=== PATIENT | female | born 1965 ===

== ENCOUNTER 2023-02-13 11:36 | Observation (INO) ==
[2023-02-13] MEDS ORDERED: fentaNYL citrate PF 100 MCG/2 ML VIAL IV STA ×2 (11:52→13:27)
--- NOTE | 2023-02-13 11:55 | Emergency Department Note ---
Impression & Plan Bimalleolar fracture of right ankle ED Provider Note HISTORY OF PRESENT ILLNESS: Patient is a 57-year-old female presenting with right ankle pain and right hip pain after a fall. Patient reports she slipped on a snow bank in the weather and twisted her right ankle and fell on her right hip. Denies striking her head or loss of consciousness. She reports she laid on the ground for 20 minutes before someone was able to call for help. She was unable to get up on her own secondary to immense pain. Denies any chest pain or shortness of breath prior to the fall. Reports she just lost her footing on the ice. She is not on any anticoagulation ROS: as above PHYSICAL EXAM: Constitutional: Patient appears in no acute distress. HENT: Head: Normocephalic and atraumatic. Eyes: EOMI, PERRL Mouth/Throat: Mucous membranes moist. Neck: Trachea midline. Neck supple. Cardiovascular: RRR, No murmurs, rubs or gallops. Intact distal pulses. Pulmonary/Chest: No respiratory distress. Breath sounds clear and equal bilaterally. No wheezes or rales. No chest wall tenderness to palpation. Abdominal: Abdomen soft, no tenderness, rebound or guarding. Musculoskeletal: - RLE: No open wounds. Patient has deformity to the ankle. She has ecchymosis on the medial malleolus. Intact DP and PT pulses. Patient is able to wiggle toes. Sensation tact light touch about the nerve distributions of the foot. She is able to flex and extend at the knee without significant pain. No tenderness to palpation of the hip Skin: Warm and dry. No rash, erythema, pallor or cyanosis Psychiatric: Appropriate mood and affect for situation. Neurological: Alert and keenly responsive. CN II-XII grossly intact, moving all extremities equally and fully. MDM: - Vitals signs stable. - History obtained via patient. Patient presents with right ankle pain. Patient slipped on a snow bank in the weather and twisted her right ankle and fell on her right hip. Denies striking her head or loss of consciousness. She is not on any anticoagulation. Reports she was unable to get up off the ground on her own and laid down for 20 minutes until someone could help her up. - Chronic conditions affecting care: None - Differential diagnoses include, but are not limited to: Ankle fracture; ankle dislocation; ankle sprain; hip fracture - Order placed for continuous cardiac monitoring. At this time, monitor showed rate of 77 bpm with normal sinus rhythm, per my interpretation. - External medical records reviewed. EMS run sheet reviewed. No medications given pre-hospital. - EKG interpreted by myself showed normal sinus rhythm. Rate 73 bpm. QTc 414. No acute ischemic changes. - Laboratory workup interpreted by myself showed normal WBC; stable electrolytes; normal CK - Patient initially given 50 mg IV fentanyl for pain control. Pain seem to be well-controlled but then came back and she was given an additional 50 mcg of IV fentanyl. - Xray right hip negative for fracture, per my interpretation - Xray tib/fib and ankle shows bimalleolar fracture and dislocation. - Discussed case with orthopedist environmental remediation specialist, Dr. Clark. Sending PA-C down to see. Requests PA be able to evaluate patient's ankle before splinting. Plan for OR probably tomorrow. - Patient admitted to orthopedic service for further evaluation and management. ASSESSMENT AND PLAN: Diagnosis: Bimalleolar fracture right ankle Plan: admit Past Med/Surg History Medical History (Updated 02/13/23 @ 14:47 by Danna Elam MD) No significant past medical history Surgical History No significant past surgical history Social History Smoking Status: Former smoker Tobacco Type: Cigarettes Preferred Language: American Feels Safe at Home: Yes Allergies Allergies Allergy/AdvReac Type Severity Reaction Status Date / Time No Known Allergies Allergy Unverified 11/15/19 09:35 Home Meds Home Medications Medication Instructions Recorded Confirmed No Known Home Medications 11/15/19 11/15/19 Results & Data (ED) Vital Signs Vital Signs - 24 hr 02/13/23 11:49 02/13/23 12:03 02/13/23 12:14 Pulse Rate 76 77 77 Respiratory Rate 24 20 Respiratory Depth Shallow Blood Pressure 139/77 Blood Pressure Mean 97 Pulse Oximetry 98 99 Oxygen Delivery Method Room Air Room Air Sepsis Recent Fever Within 48 Hours No Sepsis New/Unexplained Change in Mental Status No Sepsis Action Taken by Nursing No Action Required Laboratory Data 02/13/23 11:53 02/13/23 12:45 Lab Results 02/13/23 02/13/23 Range/Units 11:53 12:45 WBC 7.90 (4.8-10.8) K/ul RBC 5.04 (4.20-5.40) M/uL Hgb 14.3 (12.0-16.0) g/dl Hct 44.7 (37.0-47.0) % MCV 88.7 (80.0-100.0) fL MCH 28.4 (25.0-34.0) pg MCHC 32.0 (32.0-36.0) g/dL RDW Std Deviation 40.7 (36.4-46.3) fL RDW Coeff of Serjio 12.5 (11.5-14.5) % Plt Count 311 (130-400) K/uL MPV 10.4 (9.4-12.4) fL Immature Gran % (Auto) 0.3 % Neut % (Auto) 48.3 % Lymph % (Auto) 42.7 % [place] % (Auto) 7.2 % Eos % (Auto) 1.0 % Baso % (Auto) 0.5 % Neut # (Auto) 3.82 (1.40-6.50) K/uL Lymph # (Auto) 3.37 (1.20-3.40) K/uL [place] # (Auto) 0.57 (0.11-0.59) K/uL Eos # (Auto) 0.08 (0.00-0.50) K/uL Baso # (Auto) 0.04 (0.00-0.20) K/uL Immature Gran # (Auto) 0.02 (0.01-0.20) K/uL Sodium 136 (136-145) mmol/L Potassium TNP 3.8 Chloride 102 (98-107) mmol/L Carbon Dioxide 22 (21-32) mmol/L Anion Gap 12 H (3-11) BUN 10 (6-23) mg/dl Creatinine 0.70 (0.6-1.2) mg/dl Est Cr Clr Drug Dosing 89.4 ml/min Est GFR ( Amer) 109.9 ml/min Est GFR (Non-Af Amer) 94.8 ml/min BUN/Creatinine Ratio 14.3 (10-20) Glucose 134 H (70-99(Fasting)) mg/dl Calcium 9.5 (8.6-10.3) mg/dl Total Bilirubin 0.5 (0.2-1.0) mg/dl AST TNP 27 ALT 20 (7-52) U/L Alkaline Phosphatase 46 (34-104) U/L Total Creatine Kinase 81 (26-192) U/L Total Protein 7.7 (6.0-8.3) gm/dl Albumin 4.5 (3.4-5.0) gm/dl Globulin 3.2 (2.5-4.0) gm/dl Albumin/Globulin Ratio 1.4 (0.9-2) Administered Medications Discontinued Medications Fentanyl Citrate (Fentanyl Citrate Pf 100 Mcg/2 Ml Vial) 50 mcg IV NOW STA Stop: 02/13/23 11:53 Last Admin: 02/13/23 12:00 Dose: 50 mcg Documented By: KT Fentanyl Citrate (Fentanyl Citrate Pf 100 Mcg/2 Ml Vial) 50 mcg IV NOW STA Stop: 02/13/23 13:28 Last Admin: 02/13/23 13:38 Dose: 50 mcg Documented By: KT Imaging Data Radiologist's Impression: Ankle X-Ray 02/13/23 11:52 RIGHT TIBIA AND FIBULA 2 VIEWS; RIGHT ANKLE 2 VIEWS CLINICAL HISTORY: Fall. Right leg injury. FINDINGS: AP and crosstable lateral views of the right tibia and fibula with AP and lateral views of the right ankle are obtained. No prior studies are available for comparison at the time of dictation. The skeletal structures are well mineralized. There is a comminuted and mildly displaced oblique fracture through the distal fibula. There is also a comminuted horizontal fracture through the base of the medial malleolus. The medial malleolus is displaced laterally by approximately 9 mm. There is mild anterior subluxation of the talus at the tibiotalar articulation, as well as lateral offset of the talus by approximately 1.2 cm. The proximal tibia and fibula appear intact. Soft tissue swelling overlies the fractures. There is associated joint effusion. The knee joint is grossly maintained. IMPRESSION: 1. Bimalleolar ankle fracture/dislocation as above. 2. The proximal tibia and fibula appear intact. Electronically signed by: Taco Alvarez M.D. 02/13/2023 12:39 PM Hip/Pelvis X-Ray 02/13/23 11:52 XR hip RT 2V w pelvis CLINICAL HISTORY: right hip pain s/p fall TECHNIQUE: 2 views of the right hip and single frontal view of the pelvis were obtained. Comparison: None available at the time of this dictation. FINDINGS: There is no evidence of an acute fracture. Joint spaces are well-preserved. No soft tissue abnormality is seen. IMPRESSION: No evidence of acute osseous injury. ACT 112: Negative or not required by law. Electronically signed by: Pop Schumacher M.D. 02/13/2023 12:35 PM Tibia/Fibula X-Ray 02/13/23 11:52 RIGHT TIBIA AND FIBULA 2 VIEWS; RIGHT ANKLE 2 VIEWS CLINICAL HISTORY: Fall. Right leg injury. FINDINGS: AP and crosstable lateral views of the right tibia and fibula with AP and lateral views of the right ankle are obtained. No prior studies are available for comparison at the time of dictation. The skeletal structures are well mineralized. There is a comminuted and mildly displaced oblique fracture through the distal fibula. There is also a comminuted horizontal fracture through the base of the medial malleolus. The medial malleolus is displaced laterally by approximately 9 mm. There is mild anterior subluxation of the talus at the tibiotalar articulation, as well as lateral offset of the talus by approximately 1.2 cm. The proximal tibia and fibula appear intact. Soft tissue swelling overlies the fractures. There is associated joint effusion. The knee joint is grossly maintained. IMPRESSION: 1. Bimalleolar ankle fracture/dislocation as above. 2. The proximal tibia and fibula appear intact. Electronically signed by: Taco Alvarez M.D. 02/13/2023 12:39 PM Discharge Plan Visit Data Chief Complaint: Ankle Pain ED Provider: Danna Elam Discharge Problem: Bimalleolar fracture of right ankle Forms Stand Alone Forms: [employer] [facility] Prescriptions Prescriptions: No Action No Known Home Medications Referrals Referrals: PCP,NO [Primary Care Provider] -
[2023-02-13 12:16] LABS: Basophils # (auto) 0.04 K/uL (0.00-0.20); Basophils % (auto) 0.5 %; Eosinophils # (auto) 0.08 K/uL (0.00-0.50); Hematocrit (blood only) 44.7 % (37.0-47.0); Hemoglobin 14.3 g/dl (12.0-16.0); Immature Granulocytes # (auto) 0.02 K/uL (0.01-0.20); Immature Granulocytes % (auto) 0.3 %; Lymphocytes # (auto) 3.37 K/uL (1.20-3.40); Lymphocytes % (auto) 42.7 %; Mean Corpuscular Hemoglobin 28.4 pg (25.0-34.0); Mean Corpuscular Volume 88.7 fL (80.0-100.0); Mean Platelet Volume 10.4 fL (9.4-12.4); Monocytes # (auto) 0.57 K/uL (0.11-0.59); Monocytes % (auto) 7.2 %; Neutrophils # (auto) 3.82 K/uL (1.40-6.50); Neutrophils % (auto) 48.3 %; Platelet Count 311 K/uL (130-400); RDW Coefficient of Variation 12.5 % (11.5-14.5); RDW Standard Deviation 40.7 fL (36.4-46.3); Red Blood Count 5.04 M/uL (4.20-5.40)
[2023-02-13 12:27] LABS: Alanine Aminotransferase 20 U/L (7-52); Albumin Globulin Ratio 1.4 (0.9-2); Albumin Level 4.5 gm/dl (3.4-5.0); Alkaline Phosphatase 46 U/L (34-104); Anion Gap 12 (3-11); BUN Creatinine Ratio 14.3 (10-20); Bilirubin,Total 0.5 mg/dl (0.2-1.0); Blood Urea Nitrogen 10 mg/dl (6-23); Calcium 9.5 mg/dl (8.6-10.3); Carbon Dioxide 22 mmol/L (21-32); Chloride 102 mmol/L (98-107); Creatine Kinase 81 U/L (26-192); Creatinine Clr Calc Pharmacy 89.4 ml/min; Est GFR (African American) 109.9 ml/min; Est GFR (Non-African American) 94.8 ml/min; Globulin 3.2 gm/dl (2.5-4.0); Glucose 134 mg/dl (70-99(Fasting)); Sodium 136 mmol/L (136-145); Total Protein 7.7 gm/dl (6.0-8.3)
--- NOTE | 2023-02-13 12:36 | XRay Report ---
XR hip RT 2V w pelvis CLINICAL HISTORY: right hip pain s/p fall TECHNIQUE: 2 views of the right hip and single frontal view of the pelvis were obtained. Comparison: None available at the time of this dictation. FINDINGS: There is no evidence of an acute fracture. Joint spaces are well-preserved. No soft tissue abnormalit y is seen. IMPRESSION: No evidence of acute osseous injury. ACT 112: Negative or not required by law. Electronically signed by: Pop Schumacher M.D. 02/13/2023 12:35 PM
--- NOTE | 2023-02-13 12:41 | XRay Report ---
RIGHT TIBIA AND FIBULA 2 VIEWS; RIGHT ANKLE 2 VIEWS CLINICAL HISTORY: Fall. Right leg injury. FINDINGS: AP and crosstable lateral views of the right tibia and fibula with AP and lateral views of the right ankle are obtained. No prior studies are available for comparison at the time of dictation. The skeletal structures are well mineralized. There is a comminuted and mildly displaced oblique fra cture through the distal fibula. There is also a comminuted horizontal fracture through the base of t he medial malleolus. The medial malleolus is displaced laterally by approximately 9 mm. There is mild anterior subluxation of the talus at the tibiotalar articulation, as well as lateral offset of the t alus by approximately 1.2 cm. The proximal tibia and fibula appear intact. Soft tissue swelling overl ies the fractures. There is associated joint effusion. The knee joint is grossly maintained. IMPRESSION: 1. Bimalleolar ankle fracture/dislocation as above. 2. The proximal tibia and fibula appear intact. Electronically signed by: Taco Alvarez M.D. 02/13/2023 12:39 PM
[2023-02-13 13:26] LABS: Potassium 3.8 mmol/L (3.5-5.1)
[2023-02-13] MEDS ORDERED: LIDOCAINE 1% LOCAL 20 ML VIAL ONE (14:18)
--- OUTSIDE RECORDS SUMMARY | 2023-02-13 14:33 | External Medical Summary | Summary of Care ---
Author Name Unknown Organization [facility] Address [address] [place] [address] Phone [phone] Care Team Providers Care Campus Supervisor Name Role Phone Avi Massey MD Primary Care Provider [phone] Reason for Visit * Reason Onset Date Comments Referral 02/09/2023 Encounter Details Date Type Department Care Team (Late st Contact Info) Description 02/09/2023 Telephone [facility] [address] [place] [address] Avi Massey MD [address] [place] [address] Referral Allergies No known active allergiesdocumented as of this encounter (statuses as of 02/12/2023) Medications No known medicationsdocumented as of this encounter (statuses as of 02/12/2023) Active Problems Problem Noted Date Diagnosed Date History of right breast cancer 10/06/2022 Family hx of colon cancer 10/06/2022 Screening for osteoporosis 10/06/2022 S/P breast implant, right 10/06/2022 documented as of this encounter (statuses as of 02/12/2023) Social History Tobacco Use Types Packs/Day Years Used Date Smoking Tobacco: Never Passive Smoke Exposure: Never Smokeless Tobacco: Never Alcohol Use Standard Drinks/Week Comments Yes 3 (1 standard drink = 0.6 oz pur e alcohol) Sex and Gender Information Value Date Recorded Sex Assigned at Not on file Gender Identity Not on file Sexual Orientation Not on file Job Start Date Occupation Industry Not on file Not on file Not on file documented as of this encounter Miscellaneous Notes * Addendum Note - Radha Rossi LPN - 02/12/2023 2:44 PM ESTAddended by: RADHA ROSSI on: 02/12/2023 02:44 PM Modules accepted: Orders * Telephone Encounter - Radha Rossi LPN - 02/12/2023 2:40 PM EST This was discussed at OV in Sep. Referral to plastic surgery was placed then, but does not look like pt saw anyone. New referral pended Pre-op clearance not needed - not having surgery. Just asking for referral to plastic surgery They were asking if you had wanted to order any testing due to any issues from the old breast implant * Telephone Encounter - Avi Massey MD - 02/12/2023 8:02 AM EST She was seen in sep once and sounds like she needs pre op clearance She will need to see a provider and can get EKG with visit And who is her plastic surgeon ? * Telephone Encounter - Ivanna Dean OSA - 02/09/2023 5:20 PM EST Pt and pts daughter is calling in and she ws seen in the office for this issue. Pts daughter is nothappy. She needs a referral for a plastic surgeon for her breast issues/ with implants per daughter. Right breast implant issues her. Pts daughter is requesting an EKG or any other further testing due to her breast implant issues. Daughter is worried. Judy Condon [phone] documented in this encounter Plan of Treatment Upcoming Encounters Date Type Department Care Team (Late st Contact Info) Description 07/31/2023 8:00 AM EDT Office Visit Rheumatology [address] [place] [address] Mohan Schneider CRNP [address] [facility] [place] [address] 10/11/2023 4:40 PM EDT Office Visit [facility] [address] [place] [id number] Avi Massey MD [address] [place] [address] Health Maintenance Due Date Last Done Comments Hepatitis B (1 of 3 - 3-dose series) 1963 Depression Screening 1975 HIV Screening 1978 DTaP,Tdap,and Td Vaccines (1 - Tdap) 1982 HPV/Co-Test 1993 Mammogram 2003 Colonoscopy 2008 Sigmoidoscopy 2008 Fecal Occult Blood Test 06/22/2020 06/23/2019 Cervical Cancer Screening 03/24/2022 Pap Smear 03/24/2022 03/24/2019 Cologuard 06/25/2022 06/26/2019 Colorectal Cancer Screening 06/25/2022 COVID-19 Vaccine (3 - 2022-2 4 season) 2022 05/12/2020, 04/19/2020 Influenza Vaccine (FLU shot) (#1) 2022 Lipid Panel 03/17/2024 03/17/2019 Zoster Vaccines Completed 05/16/2021, 03/14/2021 GARDASIL-HPV IMMUNIZATION SERIES Aged Out No longer eligible b ased on patient's age to complete this topic MENINGOCOCCAL (MENACTRA/MENVEO) Aged Out No longer eligible b ased on patient's age to complete this topic Pneumococcal Vaccine: Pediatrics (0 to 5 Years) and At-Risk Patients (6 to 64 Years) Aged Out No longer eligible b ased on patient's age to complete this topic documented as of this encounter Medical Devices Not on filedocumented as of this encounter Care Teams Campus Supervisor Relationship Specialty Start Date End Date Avi Massey MD [address] [facility] [place] [address] PCP - General Internal Medicine 10/05/22 documented as of this encounter
--- OUTSIDE RECORDS SUMMARY | 2023-02-13 14:33 | External Medical Summary | Summary of Care ---
Author Name Unknown Organization [facility] Address [address] [place] [address] Phone [phone] Care Team Providers Care Disbursing Agent Name Role Phone Avi Massey MD Primary Care Provider [phone] Reason for Referral * Evaluate & Treat - Unlimited Visits (Within 30 days (routine)) - Pending Review Specialty Diagnoses / Procedures Referred By Marcus huizar Referred To Contact Plastic Surgery Diagnoses S/P breast implant, right History of right breast cancer Avi Massey MD [address] [place] [address] Referral ID Status Reason Start Date Expiration Date Visits Requested Visits Authorized [id number] Pending Review Specialty Services Required 02/12/[phone] Question Answer Referral Priority Within 30 days (routine) Where should this appointment be scheduled? [facility] What condition is the patient being seen for? Breast Reconstruction Comments Current Patient BMI: There is no height or weight on file to calculate BMI. Reason for Visit * Reason Onset Date Comments Referral 02/09/2023 Encounter Details Date Type Department Care Team (Late st Contact Info) Description 02/09/2023 Telephone [facility] [place] [address] [place] [facility] [place] [address] Avi Massey MD [address] [place] [facility] [place] [address] Referral Allergies No known active allergiesdocumented [...] encounter Miscellaneous Notes * Addendum Note - Avi Massey MD - 02/12/2023 2:50 PM ESTAddended by: AVI MASSEY on: 02/12/2023 02:50 PM Modules accepted: Orders * Telephone Encounter - Avi Massey MD - 02/12/2023 2:49 PM EST Ordered referral - lasting 30 days So pt needs to contact plastic surgery within 30 days please And if pt needs any test related to surgery, plastic surgeon will decide it * Addendum Note - Radha Rossi LPN - 02/12/2023 2:44 PM ESTAddended by: RADHA ROSSI on: 02/12/2023 02:44 PM Modules accepted: Orders * Telephone Encounter - Radha Rossi LPN - 02/12/2023 2:40 PM EST This was discussed at in Sep. Referral to plastic surgery was [...] her breast implant issues. Daughter is worried. [facility] [phone] documented in this encounter Plan of Treatment Upcoming Encounters Date Type Department Care Team (Late st Contact Info) Description 07/31/2023 8:00 AM EDT Office Visit Rheumatology [place] [id number] [place] [address] Mohan Schneider CRNP [address] [place] [address] [place], [place] [address] 10/11/2023 4:40 PM EDT Office Visit [facility] [address] [place] [facility] [place] [id number] Avi Massey MD [address] [place] [address] Scheduled Referrals Name Type Priority Associated Diagnoses Orde r Schedule PLASTIC SURGERY REFERRAL OP Referral Within 30 days (routine) S/P breast implant, right History of right breast cancer Ordered: 02/12/2023 Health Maintenance Due Date Last Done Comments [...] Not on filedocumented as of this encounter Visit Diagnoses Diagnosis S/P breast implant, right- Primary Breast replaced by other means History of right breast cancer documented in this encounter Care Teams Disbursing Agent Relationship Specialty Start Date End Date Avi Massey MD [address] [place] [address] PCP - General Internal Medicine 10/05/22 documented as of this encounter
--- OUTSIDE RECORDS SUMMARY | 2023-02-13 14:34 | External Medical Summary | Summary of Care ---
Author Name Unknown Organization [facility] Address [address] [place] [address] Phone [phone] Care Team Providers Care Lean Leader Name Role Phone Avi Massey MD Primary Care Provider [phone] Encounter Details Date Type Department Care Team (Late st Contact Info) Description 12/30/2022 Telephone Family Practice [facility] [address] [place] [address] Avi Massey MD [address] [place] [address] Allergies No known active allergiesdocumented as of this encounter (statuses as of 01/03/2023) Medications No known medicationsdocumented as of this encounter (statuses as of 01/03/2023) Active Problems Problem Noted Date Diagnosed Date History of right breast cancer 10/06/2022 Family hx of colon cancer 10/06/2022 Screening for osteoporosis 10/06/2022 S/P breast implant, right 10/06/2022 documented as of this encounter (statuses as of 01/03/2023) Social History Tobacco Use Types Packs/Day Years [...] as of this encounter Miscellaneous Notes * Telephone Encounter - Rachel Ruth MED ASSIST - 01/03/2023 3:39 PM EST Tried to call pt. No answer. Left message to call back. Please advise previous message. * Telephone Encounter - Tammie Rodríguez LPN - 12/30/2022 4:34 PM EST left message on machine for pt to call office Please see message below. Thanks * Telephone Encounter - Avi Massey MD - 12/30/2022 12:53 PM EST DEXA showed lumbar spine osteoporosis If pt agrees , would like to refer her to osteoporosis clinic documented in this encounter Plan of Treatment Upcoming Encounters Date Type Department Care Team (Late st Contact Info) Description 10/11/2023 4:40 PM EDT Office Visit Located Within [facility] [address] [place] [address] Avi Massey MD [address], [place] [id number] Health Maintenance Due Date Last Done Comments Hepatitis B (1 of 3 - 3-dose series) 1963 Depression Screening 1975 HIV Screening 1978 DTaP,Tdap,and Td Vaccines (1 - Tdap) 1982 HPV/Co-Test 1993 Mammogram 2003 Colonoscopy 2008 Sigmoidoscopy 2008 Fecal Occult Blood Test 06/22/2020 06/23/2019 Cervical Cancer Screening 03/24/2022 Pap Smear 03/24/2022 03/24/2019 Cologuard 06/25/2022 06/26/2019 Colorectal Cancer Screening 06/25/2022 COVID-19 Vaccine (2022-2 4 season) 2022 05/12/2020, 04/19/2020 Influenza Vaccine [...] filedocumented as of this encounter Care Teams Lean Leader Relationship Specialty Start Date End Date Avi Massey MD [address] [place] [address] PCP - General Internal Medicine 10/05/22 documented as of this encounter
--- OUTSIDE RECORDS SUMMARY | 2023-02-13 14:34 | External Medical Summary | Summary of Care ---
Author Name Unknown Organization [facility] Address [address] [place] [address] Phone [phone] Care Team Providers Care Carpet Floor Layer Apprentice Name Role Phone Avi Massey MD Primary Care Provider [phone] Reason for Referral * Evaluate & Treat - Unlimited Visits (Within 10 days (routine)) - Pending Review Specialty Diagnoses / Procedures Referred By Marcus huizar Referred To Contact Rheumatology Diagnoses Osteoporosis without current pathological fracture, unspecified osteoporosis type Avi Massey MD [address] [place] [address] Referral ID Status Reason Start Date Expiration Date Visits Requested Visits Authorized [id number] Pending Review Specialty Services Required 3 [phone] Question Answer Referral Priority Within 10 days (routine) Where should this appointment be scheduled? Danilo Encounter Details Date Type Department Care Team (Late st Contact Info) Description 12/30/2022 Telephone Family Practice [address] [place] [address] Avi Massey MD [address], [place] [id number] Allergies No known active allergiesdocumented as of this encounter (statuses as of 01/04/2023) Medications No known medicationsdocumented as of this encounter (statuses as of 01/04/2023) Active Problems Problem Noted Date Diagnosed Date History of right breast cancer 10/06/2022 Family hx of colon cancer 10/06/2022 Screening for osteoporosis 10/06/2022 S/P breast implant, right 10/06/2022 documented as of this encounter (statuses as of 01/04/2023) Social History Tobacco Use Types Packs/Day Years [...] Addendum Note - Avi Massey MD - 01/04/2023 10:27 AM ESTAddended by: AVI MASSEY on: 01/04/2023 10:27 AM Modules accepted: Orders * Telephone Encounter - Avi Massey MD - 01/04/2023 10:27 AM EST Please schedule * Telephone Encounter - Marlena Lechuga LPN - 01/03/2023 3:43 PM EST Patient aware and verbalized understanding, will comply. Agreeable with going to the osteoporosis clinic. Please advise. * Telephone Encounter - Rachel Ruth MED [...] Description 10/11/2023 4:40 PM EDT Office Visit [facility] [address] [place] [address] Avi Massey MD [address] [place] [address] Scheduled Referrals Name Type Priority Associated Diagnoses Orde r Schedule [facility] REFERRAL OP Referral Within 10 days (routine) Osteoporosis without current pathological fracture, unspecified osteoporosis type Ordered: 01/04/2023 Health Maintenance Due Date Last Done Comments [...] as of this encounter Visit Diagnoses Diagnosis Osteoporosis without current pathological fracture, unspecified osteoporosis type- Primary documented in this encounter Care Teams Carpet Floor Layer Apprentice Relationship Specialty Start Date End Date Avi Massey MD [address] [place] [address] PCP - General Internal Medicine 10/05/22 documented as of this encounter
--- OUTSIDE RECORDS SUMMARY | 2023-02-13 14:34 | External Medical Summary | Summary of Care ---
Author Name Unknown Organization [facility] Address [address] [place] [address] Phone [phone] Care Team Providers Care Cattle Killer Name Role Phone Avi Massey MD Primary Care Provider [phone] Reason for Referral * Evaluate & Treat - Unlimited Visits (Within 10 days (routine)) - Pending Review Specialty Diagnoses / Procedures Referred By Marcus huizar Referred To Contact Plastic Surgery Diagnoses History of right breast cancer S/P breast implant, right Avi Massey MD [address] [place] [address] Referral ID Status Reason Start Date Expiration Date Visits Requested Visits Authorized [id number] Pending Review Specialty Services Required 10/05/[phone] Question Answer Referral Priority Within 10 days (routine) What condition is the patient being seen for? Reconstruction post disease/trauma Comments Current Patient BMI: Body mass index is 23.96 kg/m. Reason for Visit * Reason Comments NEW PATIENT Establish care- Pt severo parikh has implant for 18 years, is encapsulated, intesteed in having the impalnt taken out and getting a reduction to the left side to even things out. Pt states having a pinching in the left chest side only when laying in bed, did go tot he eR, no testing was really ordered. Pt states is also concerned about her height loss, pt has area on pointer finger that will get itchy and bumpy for years now. She is very irritated by the itching. Encounter Details Date Type Department Care Team Description 10/05/2022 Office Visit [facility] [address] [place] [address] Avi Massey MD [address] [place] [address] Physical exam, annual*; History of right breast cancer; Family hx of colon cancer; Fatigue, unspecified type; Screening for osteoporosis; S/P breast implant, right; Screen for colon cancer Allergies No known active allergiesdocumented as of this encounter (statuses as of 10/06/2022) Medications No known medicationsdocumented as of this encounter (statuses as of 10/06/2022) Active Problems Problem Noted Date History of right breast cancer 3 Family hx of colon cancer 10/06/2022 Screening for osteoporosis 10/06/2022 S/P breast implant, right 10/06/2022 documented as of this encounter (statuses as of 10/06/2022) Social History Tobacco Use Types Packs/Day Years Used Date Smoking Tobacco: Never Passive Smoke Exposure: Never Smokeless Tobacco: Never Tobacco Cessation:Counseling Given: No Alcohol Use Standard Drinks/Week Comments Yes 3 (1 standard drink = 0.6 oz pur e alcohol) Sex Assigned at Date Recorded Not on file Job Start Date Occupation Industry Not on file Not on file Not on file documented as of this encounter Last Filed Vital Signs Vital Sign Reading Time Taken Comments Blood Pressure 122/80 10/05/2022 5:01 PM EDT Pulse 86 10/05/2022 5:01 PM EDT Temperature 36.6 C (97.8 F) 10/05/2022 5:01 PM ED T Respiratory Rate 16 10/05/2022 5:01 PM EDT Oxygen Saturation 98% 10/05/2022 5:01 PM EDT Inhaled Oxygen Concentration - - Weight 67.9 kg (149 lb 9.6 oz) 10/05/2022 5:01 P M EDT Height 168.3 cm (5' 6.25") 10/05/2022 5:01 PM ED T Body Mass Index 23.96 10/05/2022 5:01 PM EDT documented in this encounter Progress Notes * Avi Massey MD - 10/05/2022 5:11 PM EDT Subjective Johan Condon is a 57 year old female. Chief Complaint Patient presents with NEW PATIENT Establish care- Pt states has implant for 18 years, is encapsulated, intesteed in having the impalnt taken out and getting a reduction to the left side to even things out. Pt states having a pinchingin the left chest side only when laying in bed, did go tot he eR, no testing was really ordered. Ptstates is also concerned about her height loss, pt has area on pointer finger that will get itchy and bumpy for years now. She is very irritated by the itching. HPI: Patient is new here for PCP establishment and for medical management of known PMH as below. Possibly was seeing a provider at [facility] Was getting mammogram annually - just done over summer, normal Rt breast cancer around 18 yrs ago Had an implant, rt but has uneven breast size and implant is too old Would like to see plastic surgery for breast reconstruction Uneven size breast also is causing possible upper shoulder height difference and height loss Ree 3 yrs ago - reordered Colon cancer in paternal aunt , of it at 60s Advised to get PAP anytime Agree with DEXA scan PMH: Patient Active Problem List Diagnosis Code History of right breast cancer Z85.3 Family hx of colon cancer Z80.0 Screening for osteoporosis Z13.820 S/P breast implant, right Z98.82 No current outpatient medications on file. No current facility-administered medications for this visit. Past Medical History: Diagnosis Date Cancer (HCC) Past Surgical History: Procedure Laterality Date MASTECTOMY, PARTIAL Right 09/05/2004 date is approximate Review of patient's allergies indicates: No Known Allergies Family History Problem Relation Age of Onset Lung cancer Father Heart disease Grandmother (Maternal) Colon cancer Aunt (Unspecified) Family Status Relation Status Fa AUNT MGMA Social History Socioeconomic History Marital status: Spouse name: Not on file Number of children: Not on file Years of education: Not on file Highest education level: Not on file Occupational History Not on file Tobacco Use Smoking status: Never Passive exposure: Never Smokeless tobacco: Never Vaping Use Vaping Use: Never used Substance and Sexual Activity Alcohol use: Yes Alcohol/week: 3.0 standard drinks Types: 3 5 oz of wine per week Drug use: Never Sexual activity: Not Currently Other Topics Concern Not on file Social History Narrative Not on file Social Determinants of Health Financial Resource Strain: Not on file Food Insecurity: Not on file Transportation Needs: Not on file Physical Activity: Not on file Stress: Not on file Social Connections: Not on file Intimate Partner Violence: Not on file Housing Stability: Not on file Review of Systems Constitutional: Positive for fatigue. Negative for activity change, appetite change, chills, diaphoresis, fever and unexpected weight change. HENT: Positive for congestion. Negative for hearing loss, sore throat and tinnitus. Eyes: Negative for visual disturbance. Respiratory: Negative for cough, chest tightness, shortness of breath and wheezing. Cardiovascular: Negative for chest pain, palpitations and leg swelling. Gastrointestinal: Negative for abdominal distention, abdominal pain, blood in stool, constipation, diarrhea, nausea and vomiting. Endocrine: Negative. Negative for cold intolerance, heat intolerance, polydipsia, polyphagia and polyuria. Genitourinary: Negative for menstrual problem and pelvic pain. Musculoskeletal: Negative for arthralgias, back pain and joint swelling. Skin: Negative for color change and rash. Allergic/Immunologic: Negative for environmental allergies (?). Neurological: Negative for dizziness, weakness, light-headedness, numbness and headaches. Psychiatric/Behavioral: Negative for agitation, behavioral problems, dysphoric mood and sleep disturbance. The patient is not nervous/anxious. Objective BP 122/80 (BP Site: Left Arm, BP Position: Sitting, BP Cuff Size: Regular) | Pulse 86 | Temp 36.6 C (97.8 F) (Tympanic) | Resp 16 | Ht 1.683 m (5' 6.25") | Wt 67.9 kg (149 lb 9.6 oz) | SpO2 98% |BMI 23.96 kg/m | BSA 1.78 m Physical Exam Constitutional: General: She is not in acute distress. Appearance: Normal appearance. She is not ill-appearing, toxic-appearing or diaphoretic. HENT: Head: Normocephalic and atraumatic. Nose: Nose normal. Eyes: Extraocular Movements: Extraocular movements intact. Conjunctiva/sclera: Conjunctivae normal. Pupils: Pupils are equal, round, and reactive to light. Cardiovascular: Rate and Rhythm: Normal rate and regular rhythm. Pulses: Normal pulses. Heart sounds: Normal heart sounds. No murmur heard. Pulmonary: Effort: Pulmonary effort is normal. No respiratory distress. Breath sounds: No stridor. No wheezing, rhonchi or rales. Comments: Brochospasm sound with cough Chest: Chest wall: No tenderness. Musculoskeletal: General: No tenderness. Right lower leg: No edema. Left lower leg: No edema. Neurological: General: No focal deficit present. Mental Status: She is alert and oriented to person, place, and time. Cranial Nerves: No cranial nerve deficit. Psychiatric: Mood and Affect: Mood normal. Behavior: Behavior normal. ASSESSMENT/PLAN: Physical exam, annual (Primary) - LIPID PANEL WITH DIRECT LDL IF TG IS HIGH; Future; Expected date: 10/05/2022 - CBC WITH WBC DIFFERENTIAL AND ANEMIA REFLEX WORKUP; Future; Expected date: 10/05/2022 - COMPREHENSIVE METABOLIC PANEL; Future; Expected date: 10/05/2022 History of right breast cancer - PLASTIC SURGERY REFERRAL OP Family hx of colon cancer - COLOGUARD Fatigue, unspecified type - CBC WITH WBC DIFFERENTIAL AND ANEMIA REFLEX WORKUP; Future; Expected date: 10/05/2022 - COMPREHENSIVE METABOLIC PANEL; Future; Expected date: 10/05/2022 - TSH WITH FREE T4 IF INDICATED; Future; Expected date: 10/05/2022 - 25-HYDROXY VITAMIN D; Future; Expected date: 10/05/2022 - VITAMIN B12; Future; Expected date: 10/05/2022 Screening for osteoporosis - DEXA SCAN/BONE MINERAL AXIAL S/P breast implant, right - PLASTIC SURGERY REFERRAL OP Screen for colon cancer - COLOGUARD Check-out note: Please provide medical record release form Discussed with patient: -HEALTH PROMOTION: Adequate sleep (8-10 hours/night), regular exercise, balanced diet, dental care,limiting sedentary activities (TV, computer, Internet) -MENTAL HEALTH: Discuss feelings with an someone that they can trust -INJURY PREVENTION: Driving Safety, Seat Belts, Sun Safety, No Weapons, Conflict Resolution, Personal Safety -SUBSTANCE ABUSE: Tobacco, Drugs, Alcohol F.u all the tests Avi Massey MD documented in this encounter Plan of Treatment Upcoming Encounters Date Type Specialty Care Team Description 12/26/2022 Imaging Radiology 10/11/2023 Office Visit Family Medicine Avi Massey MD [address] [place] [address] Scheduled Orders Name Type Priority Associated Diagnoses Order Schedule COLOGUARD Lab Unrestricted Lab Family hx of colon cancer Screen for colon cancer Ordered: 10/05/2022 LIPID PANEL WITH DIRECT LDL IF TG IS HIGH Lab Routine Physical exam, annual Expected: 10/05/2022, Expires: 10/06/2023 CBC WITH WBC DIFFERENTIAL AND ANEMIA REFLEX WORKUP Lab Routine Fatigue, unspecified type Physical exam, annual Expected: 10/05/2022 (Approximate), Expires: 10/06/2023 COMPREHENSIVE METABOLIC PANEL Lab Routine Fatigue, unspecified type Physical exam, annual Expected: 10/05/2022 (Approximate), Expires: 10/05/2023 TSH WITH FREE T4 IF INDICATED Lab Routine Fatigue, unspecified type Expected: 10/05/2022 (Approximate), Expires: 10/05/2023 25-HYDROXY VITAMIN D Lab Routine Fatigue, unspecified type Expected: 10/05/2022 (Approximate), Expires: 10/05/2023 VITAMIN B12 Lab Routine Fatigue, unspecified type Expected: 10/05/2022 (Approximate), Expires: 10/05/2023 DEXA SCAN/BONE MINERAL AXIAL Medical Imaging Routine Screening for osteoporosis Ordered: 10/05/2022 Scheduled Referrals Name Type Priority Associated Diagnoses Orde r Schedule PLASTIC SURGERY REFERRAL OP Referral Within 10 days (routine) History of right breast cancer S/P breast implant, right Ordered: 10/05/2022 Health Maintenance Due Date Last Done Comments Hepatitis B (1 of 3 - 3-dose series) 1963 Lipid Panel 1963 Depression Screening, Annual for Pts 12 and Over 1975 HIV Screening 1978 Hepatitis C Screening 1981 DTaP,Tdap,and Td Vaccines (1 - Tdap) 1982 Pap Smear 1984 Cervical Cancer Screening 1993 HPV/Co-Test 1993 Mammogram 2003 Cologuard 2008 Colonoscopy 2008 Colorectal Cancer Screening 2008 Fecal Occult Blood Test 2008 Sigmoidoscopy 2008 COVID-19 Vaccine (3 - Pfizer series) 07/07/2020 05/12/2020, 04/19/2020 Influenza Vaccine (FLU shot) (#1) 2022 Zoster Vaccines Completed 05/16/2021, 03/14/2021 GARDASIL-HPV IMMUNIZATION [...] as of this encounter Visit Diagnoses Diagnosis Physical exam, annual- Primary Routine general medical examination at a health care facility History of right breast cancer Family hx of colon cancer Family history of malignant neoplasm of gastrointestinal tract Fatigue, unspecified type Screening for osteoporosis Special screening for osteoporosis S/P breast implant, right Breast replaced by other means Screen for colon cancer Special screening for malignant neoplasms, colon documented in this encounter Care Teams Cattle Killer Relationship Specialty Start Date End Date Avi Massey MD [address], [place] [id number] PCP - General Internal Medicine 10/05/22 documented as of this encounter
--- OUTSIDE RECORDS SUMMARY | 2023-02-13 14:34 | External Medical Summary | Summary of Care ---
Author Name Unknown Organization [facility] Address [address] [place] [address] Phone [phone] Care Team Providers Care Piece Goods Packer Name Role Phone Avi Massey MD Primary Care Provider [phone] Reason for Referral * Evaluate & Treat - Unlimited Visits (Within 10 days (routine)) - Pending Review Specialty Diagnoses / Procedures Referred By Marcus huizar Referred To Contact Rheumatology Diagnoses Osteoporosis without current pathological fracture, unspecified osteoporosis type Avi Massey MD [address] [place] [address] Referral ID Status Reason Start Date Expiration Date Visits Requested Visits Authorized [id number] Pending Review Specialty Services Required 3 [phone] Question Answer Referral Priority Within 10 days (routine) Where should this appointment be scheduled? Danilo Encounter Details Date Type Department Care Team (Late st Contact Info) Description 12/30/2022 Telephone Family Practice [address] [place] [address] Avi Massey MD [address], [place] [phone] Allergies No known active allergiesdocumented as of [...] encounter Miscellaneous Notes * Telephone Encounter - Kristel Laboy OSA - 01/04/2023 10:44 AM EST Scheduled. 01/04/2023 * Addendum Note - Avi Massey MD [...] 07/31/2023 8:00 AM EDT Office Visit Rheumatology [place] [id number] [facility] [place] [address] Mohan Schneider CRNP [facility] [address] 10/11/2023 4:40 PM EDT Office Visit [facility] [address] [place] [phone] Avi Massey MD [address] [place] [address] Scheduled Referrals Name Type Priority Associated Diagnoses [...] Primary documented in this encounter Care Teams Piece Goods Packer Relationship Specialty Start Date End Date Avi Massey MD [address] [place] [address] PCP - General Internal Medicine 10/05/22 documented as of this encounter
--- OUTSIDE RECORDS SUMMARY | 2023-02-13 14:34 | External Medical Summary | Summary of Care ---
Author Name Unknown Organization [facility] Address [address] [place] [address] Phone [phone] Care Team Providers Care Bottoming Machine Operator Name Role Phone Avi Massey MD Primary Care Provider [phone] Reason for Visit * Reason Onset Date Comments Encounter Created in Error 10/04/2022 Encounter Details Date Type Department Care Team (Late Contact Info) Description 10/04/2022 Telephone [facility] [address] [place] [address] Everett Jones MD [address] [place] [address] Encounter Created in Error Allergies No known active allergiesdocumented as of [...] Packs/Day Years Used Date Smoking Tobacco: Never Assessed Sex and Gender Information Value Date Recorded Sex Assigned at Not on file Gender Identity Not on file Sexual Orientation Not on file Job Start Date Occupation Industry Not on file Not on file Not on file documented as of this encounter Plan of Treatment Upcoming Encounters Date Type Department Care Team (Late Contact Info) Description 10/11/2023 4:40 PM EDT [facility] [address] [facility] [phone] [facility] [address] [facility] [address] Health Maintenance Due Date Last Done Comments [...] filedocumented as of this encounter Care Teams Bottoming Machine Operator Relationship Specialty Start Date End Date Avi Massey MD [address] [facility] [address] PCP - General Internal Medicine 10/05/22 documented as of this encounter
--- OUTSIDE RECORDS SUMMARY | 2023-02-13 14:34 | External Medical Summary | Summary of Care ---
Author Name Unknown Organization [facility] Address [address] [place] [address] Phone [phone] Care Team Providers Care Manager Commercial Real Estate Name Role Phone Avi Massey MD Primary Care Provider [phone] Encounter Details Date Type Department Care Team (Late st Contact Info) Description 12/30/2022 Telephone Family Practice [facility] [address] [place] [address] Avi Massey MD [address] [place] [address] Allergies No known active allergiesdocumented [...] encounter Miscellaneous Notes * Telephone Encounter - Marlena Lechuga LPN [...] Description 10/11/2023 4:40 PM EDT Office Visit [facility] [address] [place] [phone] Avi Massey MD [address] [place] [address] Health Maintenance Due Date Last Done Comments [...] filedocumented as of this encounter Care Teams Manager Commercial Real Estate Relationship Specialty Start Date End Date Avi Massey MD [address] [place] [address] PCP - General Internal Medicine 10/05/22 documented as of this encounter
--- OUTSIDE RECORDS SUMMARY | 2023-02-13 14:34 | External Medical Summary | Summary of Care ---
Author Name Unknown Organization [facility] Address [address] [place] [address] Phone [phone] Care Team Providers Care Stereo Operator Name Role Phone Avi Massey MD Primary Care Provider [phone] Encounter Details Date Type Department Care Team (Late st Contact Info) Description 12/30/2022 Telephone Family Practice [facility] [address] [place] [address] Avi Massey MD [address] [place] [address] Allergies No known active allergiesdocumented as of this encounter (statuses as of 12/30/2022) Medications No known medicationsdocumented as of this encounter (statuses as of 12/30/2022) Active Problems Problem Noted Date Diagnosed Date History of right breast cancer 10/06/2022 Family hx of colon cancer 10/06/2022 Screening for osteoporosis 10/06/2022 S/P breast implant, right 10/06/2022 documented as of this encounter (statuses as of 12/30/2022) Social History Tobacco Use Types Packs/Day Years [...] encounter Miscellaneous Notes * Telephone Encounter - Avi Massey MD - 12/30/2022 12:53 PM EST DEXA showed lumbar spine osteoporosis If pt agrees , would like to refer her to osteoporosis clinic documented in this encounter Plan of Treatment Upcoming Encounters Date Type Department Care Team (Late st Contact Info) Description 10/11/2023 4:40 PM EDT Office Visit [facility] [address] [place] [facility] [place] [address] Avi Massey MD [address] [place] [facility] [place] [address] Health Maintenance Due Date Last Done Comments [...] filedocumented as of this encounter Care Teams Stereo Operator Relationship Specialty Start Date End Date Avi Massey MD [address] [place] [address] PCP - General Internal Medicine 10/05/22 documented as of this encounter
--- OUTSIDE RECORDS SUMMARY | 2023-02-13 14:34 | External Medical Summary | Summary of Care ---
Author Name Unknown Organization [facility] Address [address] [place] [address] Phone [phone] Care Team Providers Care Honey Liquefier Name Role Phone Avi Massey MD Primary Care Provider [phone] Reason for Visit * Reason Onset Date Comments Health Maintenance 11/21/2022 Encounter Details Date Type Department Care Team Description 11/21/2022 Telephone [facility] [address] [place] [address] Avi Massey MD [address] [place] [address] Health Maintenance Allergies No known active allergiesdocumented as of this encounter (statuses as of 11/21/2022) Medications No known medicationsdocumented as of this encounter (statuses as of 11/21/2022) Active Problems Problem Noted Date History of right breast cancer 3 Family hx of colon cancer 10/06/2022 Screening for osteoporosis 10/06/2022 S/P breast implant, right 10/06/2022 documented as of this encounter (statuses as of 11/21/2022) Social History Tobacco Use Types Packs/Day Years [...] encounter Miscellaneous Notes * Telephone Encounter - Brittany Leavitt LPN - 11/21/2022 1:46 PM EDT Care Gaps Comprehensive Care Outreach Last Office/Telemedicine Visit: 10/05/2022 (in office), Visit date not found (telemedicine) Next Office Visit: 10/11/2023 Hemoglobin AIC Results: No results found for: HEMOGLOBIN A1C Reviewed Health Maintenance below: Health Maintenance Topic Date Due Hepatitis B (1 of 3 - 3-dose series) Never done Depression Screening Never done HIV Screening Never done DTaP,Tdap,and Td Vaccines (1 - Tdap) Never done Mammogram Never done Colorectal Cancer Screening 06/22/2020 Cervical Cancer Screening 03/24/2022 Influenza Vaccine (FLU shot) (1) Never done Cologuard follow return it Mamm goes to [facility] Pap Care Gap Outreach Action Taken: Spoke to patient documented in this encounter Plan of Treatment Upcoming Encounters Date Type Specialty Care Team Description 12/26/2022 Imaging Radiology 10/11/2023 Office Visit Family Medicine Avi Massey MD [address] [place] [id number] Health Maintenance Due Date Last Done Comments Hepatitis B (1 of 3 - 3-dose series) 1963 Depression Screening 1975 HIV Screening 1978 DTaP,Tdap,and Td Vaccines (1 - Tdap) 1982 HPV/Co-Test 1993 Mammogram 2003 Cologuard 2008 Colonoscopy 2008 Sigmoidoscopy 2008 Colorectal Cancer Screening 06/22/2020 Fecal Occult Blood Test 06/22/2020 06/23/2019 Cervical Cancer Screening 03/24/2022 Pap Smear 03/24/2022 03/24/2019 COVID-19 Vaccine (3 - 2022-2 4 season) [...] filedocumented as of this encounter Care Teams Honey Liquefier Relationship Specialty Start Date End Date Avi Massey MD [address] [place] [address] PCP - General Internal Medicine 10/05/22 documented as of this encounter
--- OUTSIDE RECORDS SUMMARY | 2023-02-13 14:34 | External Medical Summary | Summary of Care ---
Author Name Unknown Organization [facility] Address [address] [place] [address] Phone [phone] Care Team Providers Care Bag Bailer Name Role Phone Avi Massey MD Primary Care Provider [phone] Encounter Details Date Type Department Care Team Description 10/10/2022 Orders Only [facility] [address] [place] [address] Avi Massey MD [address] [place] [address] Allergies No known active allergiesdocumented as of this encounter (statuses as of 10/10/2022) Medications No known medicationsdocumented as of this encounter (statuses as of 10/10/2022) Active Problems Problem Noted Date History of right breast cancer Family hx of colon cancer 10/06/2022 Screening for osteoporosis 10/06/2022 S/P breast implant, right 10/06/2022 documented as of this encounter (statuses as of 10/10/2022) Social History Tobacco Use Types Packs/Day Years [...] Family Medicine Avi Massey MD [address] [place] [address] Health Maintenance Due Date Last Done Comments Hepatitis B (1 of 3 - 3-dose series) 1965 Depression Screening, Annual for Pts 12 and Over 1975 HIV Screening 1978 DTaP,Tdap,and Td Vaccines (1 - Tdap) 1982 HPV/Co-Test 1993 Mammogram 2003 Cologuard 2008 Colonoscopy 2008 Sigmoidoscopy 2008 Colorectal Cancer Screening 06/22/2020 Fecal Occult Blood Test 06/22/2020 06/23/2019 COVID-19 Vaccine (3 - Pfizer series) 07/07/2020 05/12/2020, 04/19/2020 Cervical Cancer Screening 03/24/2022 Pap Smear 03/24/2022 03/24/2019 Influenza Vaccine (FLU shot) (#1) 2022 Lipid Panel 03/17/2024 03/17/2019 Hepatitis C Screening Completed 03/17/2019 Zoster Vaccines Completed 05/16/2021, 03/14/2021 GARDASIL-HPV [...] Not on filedocumented as of this encounter Procedures Procedure Name Priority Date/Time Associated Diagnosis Comments FECAL OCCULT BLOOD, EIA Routine 06/23/2019 PAP SMEAR, OUTSIDE PROCEDURE Routine 03/24/2019 LIPID PANEL WITH DIRECT LDL IF TG IS HIGH Routine 03/17/2019 HEPATITIS C ANTIBODY Routine 03/17/2019 GLUCOSE Routine 03/17/2019 documented in this encounter Results * FECAL OCCULT BLOOD, EIA (06/23/2019) FECAL OCCULT BLOOD NEGATIVE OUTSIDE LAB (SEE SCANNED REPORT) Comment:FIT-DNA Stool Stool specimen / Unknown 06/23/2019 History Per Patient LAB FLUID AND STOOL ORDERABLES Performing Organization Address City/[facility] de Phone Number OUTSIDE LAB (SEE SCANNED REPORT) * PAP SMEAR, OUTSIDE PROCEDURE (03/24/2019) 03/24/2019 History Per Patient LABORATORY Performing Organization Address [facility] Phone Number OUTSIDE LAB (SEE SCANNED REPORT) * (ABNORMAL) LIPID PANEL WITH DIRECT LDL IF TG IS HIGH (03/17/2019) TRIGLYCERIDES- OUTSIDE LAB 70 <200 MG/DL OUTSIDE LAB (SEE SCANNED REPORT) CHOLESTEROL-OU TSIDE LAB 226(A) 125 - 200 MG/DL OUTSIDE LAB (SEE SCANNED REPORT) HDL-OUTSIDE LAB 64 >35 MG/DL OUTSIDE LAB (SEE SCANNED REPORT) CHOL/HDL RATIO-OUTSIDE LAB 4 OUTSIDE LAB (SEE SCANNED REPORT) LDL (CALCULATED)-O SDSIDE LAB 148(A) 50 - 130 MG/DL OUTSIDE LAB (SEE SCANNED REPORT) Blood Venous blood specimen / Unknown 03/17/2019 History Per Patient LAB BLOOD ORDERABLES Performing Organization Address [facility] Co de Phone Number OUTSIDE LAB (SEE SCANNED REPORT) * GLUCOSE (03/17/2019) GLUCOSE-OUTSIDE LAB 94 74 - 106 MG/DL OUTSIDE LAB (SEE SCANNED REPORT) Blood Venous blood specimen / Unknown 03/17/2019 History Per Patient LAB BLOOD ORDERABLES Performing Organization Address [facility] de Phone Number OUTSIDE LAB (SEE SCANNED REPORT) * HEPATITIS C ANTIBODY (03/17/2019) Blood Venous blood specimen / Unknown 03/17/2019 History Per Patient LAB BLOOD ORDERABLES OUTSIDE LAB (SEE SCANNED REPORT) documented in this encounter Care Teams Bag Bailer Relationship Specialty Start Date End Date Avi Massey MD [address] [place] [address] PCP - General Internal Medicine 10/05/22 documented as of this encounter
--- OUTSIDE RECORDS SUMMARY | 2023-02-13 14:34 | External Medical Summary | Summary of Care ---
Author Name Unknown Organization [facility] Address [address] [place] [address] Phone [phone] Care Team Providers Care Display Manager Name Role Phone Avi Massey MD Primary Care Provider [phone] Reason for Visit * Reason Onset Date Comments Referral 02/09/2023 Encounter Details Date Type Department Care Team (Late st Contact Info) Description 02/09/2023 Telephone [facility] [address] [place] [address] Avi Massey MD [address] [place] [address] Referral Allergies No known active [...] breast implant issues. Daughter is worried. Judy Quintananington [phone] documented in this encounter Plan of Treatment Upcoming Encounters Date Type Department Care Team (Late st Contact Info) Description 07/31/2023 8:00 AM EDT Office Visit Rheumatology [place] [id number] [facility] [place] [address] Mohan Schneider CRNP [address] [facility] [place] [address] 10/11/2023 4:40 PM EDT Office Visit [facility] [address] [place] [id number] Avi Massey MD [address], [place] [id number] Health Maintenance Due Date Last Done Comments [...] filedocumented as of this encounter Care Teams Display Manager Relationship Specialty Start Date End Date Avi Massey MD [address] [place] [facility] [place] [address] PCP - General Internal Medicine 10/05/22 documented as of this encounter
--- OUTSIDE RECORDS SUMMARY | 2023-02-13 14:34 | External Medical Summary | Summary of Care ---
Author Name Unknown Organization [facility] Address [address] [place] [address] Phone [phone] Care Team Providers Care Bead Forming Machine Operator Name Role Phone Avi Massey MD Primary Care Provider [phone] Reason for Visit * Reason Onset Date Comments FYI 10/05/2022 Encounter Details Date Type Department Care Team Description 10/05/2022 Telephone [facility] [address] [place] [address] Avi Massey MD [address] [place] [address] FYI Allergies No known active allergiesdocumented as of this encounter (statuses as of 10/05/2022) Medications No known medicationsdocumented as of this encounter (statuses as of 10/05/2022) Social History Tobacco Use Types Packs/Day Years [...] encounter Miscellaneous Notes * Telephone Encounter - Seda Barnes - 10/05/2022 5:54 PM EDT Pt is going to be doing some research to figure out where to go for Plastic Surgery. documented in this encounter Plan of Treatment Upcoming Encounters Date Type Specialty Care Team Description 12/26/2022 Imaging Radiology 10/11/2023 Office Visit Family Medicine Avi Massey MD [address] [place] [address] Health Maintenance Due Date Last Done Comments [...] filedocumented as of this encounter Care Teams Bead Forming Machine Operator Relationship Specialty Start Date End Date Avi Massey MD [address] [address] PCP - General Internal Medicine 10/05/22 documented as of this encounter
--- OUTSIDE RECORDS SUMMARY | 2023-02-13 14:34 | External Medical Summary | Summary of Care ---
Author Name Unknown Organization [facility] Address [address] [place] [address] Phone [phone] Care Team Providers Care Electric Motor Mechanic Name Role Phone Avi Massey MD Primary Care Provider [phone] Encounter Details Date Type Department Care Team (Late st Contact Info) Description 12/30/2022 Telephone Family Practice [facility] [address] [place] [address] Avi Massey MD [address] [place] [address] Allergies No known active allergiesdocumented [...] encounter Miscellaneous Notes * Telephone Encounter - Tammie Rodríguez LPN [...] Description 10/11/2023 4:40 PM EDT Office Visit [facility] [address] [place] [address] Avi Massey MD [address] [place] [address] Health Maintenance Due Date Last Done [...] filedocumented as of this encounter Care Teams Electric Motor Mechanic Relationship Specialty Start Date End Date Avi Massey MD [address] [place] [address] PCP - General Internal Medicine 10/05/22 documented as of this encounter
[2023-02-13] MEDS ORDERED: HYDROmorphone INJ 0.5 MG/0.5 ML SYR IV PRN ×2 (14:59)
[2023-02-13] MEDS ORDERED: oxyCODONE HCL IR 5 MG TAB (IMMEDIATE RELEASE) PO PRN ×2 (14:59)
--- NOTE | 2023-02-13 15:06 | XRay Report ---
RIGHT ANKLE 2 VIEWS CLINICAL HISTORY: Postreduction examination. FINDINGS: AP and crosstable lateral views of the right ankle are compared to study performed earlier the same day 02/13/2023. The examination is performed through a cast, obscuring fine bony detail. Again seen is a bimalleolar fracture. There is mild persistent offset of the fracture fragments. Alignment is significantly improved at the ankle joint status post closed reduction. There is minimal persiste nt anterior subluxation of the talus at the tibiotalar joint. Overlying soft tissue edema is noted. IMPRESSION: Significantly improved alignment of a bimalleolar right ankle fracture status post hot header operator al fixation. Electronically signed by: Taco Alvarez M.D. 02/13/2023 3:05 PM
--- NOTE | 2023-02-13 15:09 | XRay Report ---
XR chest 1V portable CLINICAL HISTORY: pre op TECHNIQUE: Single frontal radiograph of the chest was obtained. Comparison: None available at the time of this dictation. FINDINGS: No lines and tubes are seen. The cardiomediastinal silhouette is normal. Prominence and cephalization of the vasculature is seen. No evidence of pleural effusion or pneumothorax. IMPRESSION: Mild pulmonary edema. ACT 112: Negative or not required by law. Electronically signed by: Pop Schumacher M.D. 02/13/2023 3:08 PM
--- NOTE | 2023-02-13 15:21 | History & Physical Report ---
Date of Service February 13, 2023 Assessment & Plan (1) Bimalleolar fracture of right ankle: A long and detailed discussion today with the patient about her right ankle pathology with ample amount of time for her to ask any questions or state any concerns. All questions and concerns were discussed in its entirely to the patient's satisfaction. At this time, she does have a displaced and dislocated bimalleolar ankle fracture that will require surgical intervention. I did perform a closed reduction to help bring the ankle back to anatomical alignment. Please see procedure note below. I did discuss this patient's case with Dr. Conner in which he is happy to proceed with surgical intervention tomorrow. I did discuss open reduction internal fixation of the right bimalleolar ankle fracture with the patient is entirely. I explained the risk, benefits, and alternatives to this surgical approach. She verbalized understanding and wishes to proceed with surgical intervention. Due to her not having any significant past medical history, she will be brought onto our service for admission. We do feel that if we would discharge her, there is a chance that it might displace/dislocate again. She may have a diet today which will be a regular diet. She will be n.p.o. after midnight. Please reach out by [place] text or to [facility] orthopedics if any concerns of this patient is to arise. Will proceed with surgical intervention tomorrow. Right ankle closed reduction procedure: Site was marked and a verbal timeout was done and completed with RN and emergency department tech present. Pulses and sensation were tested prior to intervention which show active DP and PT pulses with normal sensation bilaterally. Hematoma block was then administered with aseptic technique at both the fracture site of the medial malleolus and distal fibular fracture site. I allowed a couple minutes to pass to allow the block to set. Traction was then placed and a satisfying clunk was felt with appearance of right ankle appearing to be anatomically aligned. A sugar-tong with posterior splint with fiberglass was then placed. Pulses was then reassessed as well as sensation which were still present. Patient tolerated procedure well and felt immediate relief. History of Present Illness Chief Complaint: . Right ankle fracture/bimalleolar ankle fracture Primary Care Provider: Avi Massey MD . Patient is a 57-year-old female who presented to the emergency department today with right ankle pain. She states that she slipped on snow bank in the weather and she twisted her right ankle and landed on her right lower extremity. She had immediate onset of right lower extremity pain and cannot bear weight. She was unable to move for 20 minutes until she somebody saw her. When she arrived at the emergency department, an x-ray was completed on the right ankle which saw a displaced bimalleolar ankle fracture. Orthopedics was then consulted. At this time, she notes that her right ankle is causing her discomfort at any time it is moved. Emergency department did start her on IV analgesics which is helping. She does have sensation to the right foot. She denies any low back pain, proximal extremity pain, numbness/tingling, or paresthesias. She denies any other issues at this time. Allergies Allergy/AdvReac Type Severity Reaction Status Date / Time No Known Allergies Allergy Unverified 11/15/19 09:35 Home Medications Medication Instructions Recorded Confirmed Type No Known Home Medications 11/15/19 11/15/19 History Past Med/Surg History Medical History (Updated 02/13/23 @ 15:12 by Sonny Allen PA-C) No significant past medical history Surgical History No significant past surgical history Social History Smoking Status: Former smoker Tobacco Type: Cigarettes Preferred Language: Upper Sorbian Feels Safe at Home: Yes Review of Systems All systems reviewed & are unremarkable except as noted in HPI & below. Physical Exam Constitutional: WD/WN, vitals as above no acute distress Eyes: PERRL, conjunctivae normal, anicteric sclerae Neck: trachea midline, no thyromegaly Respiratory: normal respiratory effort, lungs clear to auscultation Cardiovascular: RRR, no murmur, no edema Vessels: normal carotid upstroke; no carotid bruit Gastrointestinal (Abdomen): normal bowel sounds, soft, nontender, no hepatosplenomegaly Skin: no rashes, warm and dry Neurologic: CN's II-XI intact bilaterally and moves all extremities Psychiatric: A+Ox3, euthymic affect Musculoskeletal On physical examination of the right ankle, right ankle is slightly dislocated and externally rotated. Moderate edema with ecchymosis present diffusely throughout the right ankle. Unable to move ankle secondary to discomfort. Able to wiggle all 5 toes. +2 DP and PT pulses. Less than 2-second capillary refill. Normal sensation. Neurovascular intact. Results & Data Results & Data Laboratory Results . Diagnostic Findings . Postreduction films were interpretative personally by myself of the right ankle show better alignment of the bimalleolar ankle fracture with satisfactory anatomical alignment. Hip/Pelvis X-Ray 02/13/23 11:52 XR hip RT 2V w pelvis CLINICAL HISTORY: right hip pain s/p fall TECHNIQUE: 2 views of the right hip and single frontal view of the pelvis were obtained. Comparison: None available at the time of this dictation. FINDINGS: There is no evidence of an acute fracture. Joint spaces are well-preserved. No soft tissue abnormality is seen. IMPRESSION: No evidence of acute osseous injury. ACT 112: Negative or not required by law. Electronically signed by: Pop Schumacher M.D. 02/13/2023 12:35 PM Tibia/Fibula X-Ray 02/13/23 11:52 RIGHT TIBIA AND FIBULA 2 VIEWS; RIGHT ANKLE 2 VIEWS CLINICAL HISTORY: Fall. Right leg injury. FINDINGS: AP and crosstable lateral views of the right tibia and fibula with AP and lateral views of the right ankle are obtained. No prior studies are available for comparison at the time of dictation. The skeletal structures are well mineralized. There is a comminuted and mildly displaced oblique fracture through the distal fibula. There is also a comminuted horizontal fracture through the base of the medial malleolus. The medial malleolus is displaced laterally by approximately 9 mm. There is mild anterior subluxation of the talus at the tibiotalar articulation, as well as lateral offset of the talus by approximately 1.2 cm. The proximal tibia and fibula appear intact. Soft tissue swelling overlies the fractures. There is associated joint effusion. The knee joint is grossly maintained. IMPRESSION: 1. Bimalleolar ankle fracture/dislocation as above. 2. The proximal tibia and fibula appear intact. Electronically signed by: Taco Alvarez M.D. 02/13/2023 12:39 PM Chest X-Ray 02/13/23 13:54 XR chest 1V portable CLINICAL HISTORY: pre op TECHNIQUE: Single frontal radiograph of the chest was obtained. Comparison: None available at the time of this dictation. FINDINGS: No lines and tubes are seen. The cardiomediastinal silhouette is normal. Prominence and cephalization of the vasculature is seen. No evidence of pleural effusion or pneumothorax. IMPRESSION: Mild pulmonary edema. ACT 112: Negative or not required by law. Electronically signed by: Pop Schumacher M.D. 02/13/2023 3:08 PM Ankle X-Ray 02/13/23 14:42 RIGHT ANKLE 2 VIEWS CLINICAL HISTORY: Postreduction examination. FINDINGS: AP and crosstable lateral views of the right ankle are compared to study performed earlier the same day 02/13/2023. The examination is performed through a cast, obscuring fine bony detail. Again seen is a bimalleolar fracture. There is mild persistent offset of the fracture fragments. Alignment is significantly improved at the ankle joint status post closed reduction. There is minimal persistent anterior subluxation of the talus at the tibiotalar joint. Overlying soft tissue edema is noted. IMPRESSION: Significantly improved alignment of a bimalleolar right ankle fracture status post external fixation. Electronically signed by: Taco Alvarez M.D. 02/13/2023 3:05 PM PG Care Time/CCT Total # of Minutes Spent Total Time Spent with Patient: Total time spent is greater than 50% in coordination of care (as documented) at patient's floor/unit and/or counseling patient: Coding Level of Care Code 72329 INT INP/OBS CARE 2/55MIN Diagnoses Closed bimalleolar fracture of right ankle, initial encounter S82.841A Encounter type: initial encounter Fracture type: closed Additional Codes Fx Ankle - Bimall ankle WITH manip: Bimall ankle WITH manip ([id number]) (1) Bimalleolar fracture of right ankle Encounter type: initial encounter Fracture type: closed Qualified Code(s): S82.841A - Displaced bimalleolar fracture of right lower leg, initial encounter for closed fracture
[2023-02-13 15:26] LABS: Appearance Urine Clear (Clear); Bilirubin Urine Negative (Negative); Blood Urine Negative (Negative); Color Urine Yellow; Glucose Urine UA Negative (Negative); Ketones Urine Negative (Negative); Leukocyte Esterase Urine Negative (Negative); Nitrite Urine Negative (Negative); Protein Urine 1+ (Negative); Specific Gravity Urine 1.025 (1.000-1.030); Urobilinogen Urine Negative (Negative); pH Urine 6.5 (4.5-7.5)
[2023-02-13 15:42] LABS: Bacteria Urine Negative (Negative); Hyaline Casts Urine 0-5 /lpf (0-5); RBC Urine 0-4 /hpf (0-4); WBC Urine 0-5 /hpf (0-5)
--- NOTE | 2023-02-13 16:39 | Electrocardiogram Report ---
Test Reason : Blood Pressure : / mmHG Vent. Rate : 073 BPM Atrial Rate : 073 BPM P-R Int : 150 ms QRS Dur : 088 ms QT Int : 376 ms P-R-T Axes : 050 -01 010 degrees QTc Int : 414 ms Normal sinus rhythm Normal ECG No previous ECGs available Confirmed by Charles Vegas ([id number]) on 02/13/2023 4:39:25 PM Referred By: REFERRED SELF Confirmed By:Charles Vegas
[2023-02-13 16:51] LABS: Basophils # (auto) 0.04 K/uL (0.00-0.20); Basophils % (auto) 0.4 %; Eosinophils # (auto) 0.01 K/uL (0.00-0.50); Eosinophils % (auto) 0.1 %; Hematocrit (blood only) 41.2 % (37.0-47.0); Hemoglobin 13.9 g/dl (12.0-16.0); Immature Granulocytes # (auto) 0.02 K/uL (0.01-0.20); Immature Granulocytes % (auto) 0.2 %; Lymphocytes # (auto) 1.38 K/uL (1.20-3.40); Lymphocytes % (auto) 14.5 %; Mean Corpuscular Hgb Conc 33.7 g/dL (32.0-36.0); Mean Corpuscular Volume 85.8 fL (80.0-100.0); Monocytes # (auto) 0.43 K/uL (0.11-0.59); Monocytes % (auto) 4.5 %; Neutrophils # (auto) 7.67 K/uL (1.40-6.50); Neutrophils % (auto) 80.3 %; Platelet Count 245 K/uL (130-400); RDW Coefficient of Variation 12.4 % (11.5-14.5); RDW Standard Deviation 39.1 fL (36.4-46.3); White Blood Count 9.55 K/ul (4.8-10.8)
[2023-02-13 17:12] LABS: Albumin Globulin Ratio 1.5 (0.9-2); Albumin Level 4.2 gm/dl (3.4-5.0); BUN Creatinine Ratio 16.4 (10-20); Bilirubin,Total 0.5 mg/dl (0.2-1.0); Calcium 9.4 mg/dl (8.6-10.3); Creatinine Clr Calc Pharmacy 102.6 ml/min; Est GFR (Non-African American) 99.2 ml/min; Globulin 2.8 gm/dl (2.5-4.0); Potassium 3.8 mmol/L (3.5-5.1)
[2023-02-13] MEDS: ACETAMINOPHEN 500 MG TAB PO PRN (19:45)
[2023-02-13] MEDS: MELATONIN 3 MG TAB PO PRN (21:01)
[2023-02-14] MEDS: ACETAMINOPHEN 500 MG TAB PO PRN (05:07)
[2023-02-14] MEDS ORDERED: ceFAZolin 2000MG 2,000 MG/15 ML SYR IV SCH (06:00)
--- NOTE | 2023-02-14 09:05 | Orthopedic Progress Note ---
Date of Service February 14, 2023 Assessment & Plan (1) Bimalleolar fracture of right ankle: Patient was seen and evaluated today with Dr. Conner. Overall, she is doing quite well today with good pain control. Consent was signed and witnessed for open reduction internal fixation of the right bimalleolar ankle fracture. We will proceed with this later this afternoon. Prior to her surgery, working on to get her sized and fitted for a walker due to her being nonweightbearing to the right lower extremity. Our goal is to possibly discharge her postoperatively if her pain is well-controlled and she is able to maintain nonweightbearing to the right lower extremity. Her daughter will be around to help postoperatively. Will see how she does after surgery today. The patient was seen and examined by myself, Matt Conner. She got a unstable bimalleolar ankle fracture dislocation. Working to fix this today. All risks and benefits were explained and informed consent was obtained. Joshua Prado was seen and evaluated at bedside this morning resting comfortably in no apparent distress. She notes that her ankle pain has been quite controlled since it has been splinted and immobilized. She is ready to proceed with surgery later today. She denies any other concerns today. Review of Systems All systems reviewed & are unremarkable except as noted in HPI & below. Physical Exam . On physical examination of the right ankle, splint is in place, clean, dry, intact. She is able to wiggle all 5 toes. Less than 2-second capillary refill. Normal sensation. Neurovascular intact. Results & Data Results & Data Laboratory Results . Diagnostic Findings . PG Care Time/CCT Total # of Minutes Spent Total Time Spent with Patient: Total time spent is greater than 50% in coordination of care (as documented) at patient's floor/unit and/or counseling patient: Coding Level of Care Code 62304 SUB INP/OBS CARE 03/01MIN Diagnoses Closed bimalleolar fracture of right ankle, initial encounter S82.841A Encounter type: initial encounter Fracture type: closed (1) Bimalleolar fracture of right ankle Encounter type: initial encounter Fracture type: closed Qualified Code(s): S82.841A - Displaced bimalleolar fracture of right lower leg, initial encounter for closed fracture
--- NOTE | 2023-02-14 09:35 | Anesthesiology Consultation ---
Date of Service February 14, 2023 Assessment & Plan Chart Review Chart Review: Acceptable Risk for Surgery and Patient NOT seen in Pre Admission Testing Consults Requested none History Surgery Operation Date: 02/14/23 07:00 Proposed Procedures p Right Ankle Bimalleolar Open Reduction Internal Fixation - Matt Conner MD Height/Weight Height: 5 ft 6 in Weight: 74.6 kg Allergies Allergy/AdvReac Type Severity Reaction Status Date / Time No Known Allergies Allergy Verified 02/13/23 15:59 Medications Home Medications Medication Instructions Recorded Confirmed Last Taken Beet Chews 1 tab PO DAILY 02/13/23 02/13/23 02/13/23 Food Based Multivitamin 1 tab PO DAILY 02/13/23 02/13/23 02/13/23 ascorbic acid 30 mg-collagen, 1 tab PO DAILY 02/13/23 02/13/23 02/13/23 hydrolyzed 833.3 mg tablet (Collagen Skin Renewal) herbal drugs 1 cap PO DAILY 02/13/23 02/13/23 02/13/23 Active Medications Generic Name Dose Route Start Last Admin Trade Name Freq PRN Reason Stop Dose Admin Acetaminophen 1,000 mg 02/13/23 14:59 02/14/23 05:07 Acetaminophen 500 Mg Tab PO 03/15/23 14:58 1,000 mg Q8H PRN Administration Pain & Pre PT Melatonin 9 mg 02/13/23 19:49 02/13/23 21:01 Melatonin 3 Mg Tab PO 03/15/23 19:48 9 mg HS PRN Administration Sleep Past Medical History Medical History (Updated 02/13/23 @ 15:12 by Sonny Allen PA-C) No significant past medical history Past Surgical History Surgical History No significant past surgical history Social History Smoking Status: Never smoker Do You Dip or Chew Tobacco: No Hx Alcohol Use: Yes Alcohol type: wine alcohol intake frequency: a few times a week Hx Substance Use: No Physical Exam Vital Signs Last Vital Signs Temp 36.7 C 02/14/23 07:04 Pulse 74 02/14/23 07:04 Resp 16 02/14/23 07:04 BP 102/63 02/14/23 07:04 Pulse Ox 96 02/14/23 07:04 O2 Del Method Room Air 02/14/23 07:04 Testing Laboratory Results 02/13/23 16:21 02/13/23 16:21 PT 11.0 Seconds (9.0-12.0) 02/13/23 16:21 INR 1.0 (0.9-1.1) 02/13/23 16:21 Urine Color Yellow 02/13/23 15:09 Urine Appearance Clear (Clear) 02/13/23 15:09 Urine pH 6.5 (4.5-7.5) 02/13/23 15:09 Ur Specific [place] 1.025 (1.000-1.030) 02/13/23 15:09 Urine Protein 1+ (Negative) H 02/13/23 15:09 Urine Glucose (UA) Negative (Negative) 02/13/23 15:09 Urine Ketones Negative (Negative) 02/13/23 15:09 Urine Nitrite Negative (Negative) 02/13/23 15:09 Ur Leukocyte Esterase Negative (Negative) 02/13/23 15:09 Urine RBC 0-4 /hpf (0-4) 02/13/23 15:09 Urine WBC 0-5 /hpf (0-5) 02/13/23 15:09 Ur Epithelial Cells 5-10 /lpf (0-5) H 02/13/23 15:09
--- NOTE | 2023-02-14 12:23 | History & Physical Bridge Note ---
Date of Service February 14, 2023 History & Physical Bridge Note I have examined the patient, reviewed the History & Physical and in the interval since the performance of the History & Physical I have noted the following changes of clinical significance: no changes noted
[2023-02-14] MEDS ORDERED: BUPIVACAINE/EPINEPHRINE 0.5% MPF 1:200,000 30 ML VIAL ONE (13:07)
[2023-02-14] MEDS ORDERED: BACITRACIN OINT 14 GM TUBE ONE (13:07)
[2023-02-14] MEDS ORDERED: LIDOCAINE 2% 2 ML VIAL/AMP(20MG/ML) INFIL ONE (13:13)
[2023-02-14] MEDS ORDERED: PROPOFOL IV EMULSION 10 MG/ML 20 ML VIAL IV ONE ×5 (13:13→15:41)
[2023-02-14] MEDS ORDERED: MIDAZOLAM HCL 1 MG/ML 2ML VIAL ONE (13:14)
[2023-02-14] MEDS ORDERED: fentaNYL citrate PF 100 MCG/2 ML VIAL ONE (13:14)
[2023-02-14] MEDS ORDERED: ONDANSETRON INJ 2 MG/ML 2 ML VIAL IV STA (13:16)
[2023-02-14] MEDS ORDERED: ROPIVACAINE 0.5% 5 MG/ML 30 ML VIAL ONE (13:17)
[2023-02-14] MEDS ORDERED: ONDANSETRON INJ 2 MG/ML 2 ML VIAL ONE ×2 (13:18→16:14)
[2023-02-14] MEDS ORDERED: ATROPINE SULFATE 0.1 MG/ML 10ML SYR IV PRN (13:25)
[2023-02-14] MEDS ORDERED: fentaNYL citrate PF 100 MCG/2 ML VIAL IV PRN (13:25)
[2023-02-14] MEDS ORDERED: PROMETHAZINE HCL 12.5 MG in SODIUM CHLORIDE 0.9% 50 ML IV PRN (13:25)
[2023-02-14] MEDS ORDERED: ePHEDrine sulfate 50 MG/ML AMP IV PRN (13:25)
[2023-02-14] MEDS ORDERED: ROCURONIUM BROMIDE 10 MG/ML 5 ML VIAL IV ONE (13:48)
[2023-02-14] MEDS ORDERED: FAMOTIDINE/PF 20 MG/2 ML VIAL IV ONE (15:07)
[2023-02-14] MEDS ORDERED: SUGAMMADEX SODIUM 200 MG/2 ML VIAL IV ONE (16:16)
--- NOTE | 2023-02-14 16:40 | Operative Report ---
PG Post Operative Report Pre & Post Diagnosis Operation Date: 02/14/23 07:00 Pre-Op Diagnosis: Right bimalleolar ankle fracture/dislocation Post-Op Diagnosis: Right bimalleolar ankle fracture/dislocation I identified the patient and participated in the time-out.: Yes Procedure Operation Date: 02/14/23 07:00 Actual Procedures p Right Ankle Bimalleolar Open Reduction Internal Fixation(Right) - Matt Conner MD Surgeon Matt Conner MD Accounting Lecturer Fabián Cuevas PA-C Estimated Blood Loss 25 Findings Consistent with Post-Op Diagnosis Specimens None Anesthesia Type General Regional Complications none Disposition Accompanied Patient To Recovery: No Indications Patient is a 57-year-old female who sustained injury to her ankle yesterday. She has acute onset of pain and deformity to her ankle. She brought to emergency room where x-rays revealed a bimalleolar ankle fracture/dislocation. She underwent closed reduction last evening and was indicated for surgical repair. Description of Procedure Operative implants consist of: Medial side implants consist of: 1. 4.0 partially-threaded cannulated screws x 2 each with a washer. Lateral side implants consisted of: 1. Synthes 10 hole one third semitubular locking plate. 2. 4.0 partially-threaded lag screw x 1. 3. 4.0 fully threaded can sella screw x 2. 4. 3.5 fully threaded cortical screws x 5. 5. 3.5 mm cortical locking screw x 1. The patient was taken the operating, identified, placed on the operating table in the supine position. Contractors were properly padded. IV antibiotics were by anesthesia team. A block [employer] in the holding area. General anesthetic was implemented. Right thigh-high tourniquet was then placed in the right lower extremity splint was removed. We scrubbed the entire leg with Hibiclens then prepped with ChloraPrep and draped in usual sterile fashion. The right leg was elevated exsanguinated with use of an Esmarch and tourniquet placed at 300 mmHg. A medial approach to the ankle was then performed to a curvilinear incision over the medial malleolus. Sharp dissection was carried through subcutaneous tissue directly down the fracture site. There was significant periosteal stripping so we did not have to do any of that. I opened the fracture site cleaned out all the clot and all the periosteum. I reduced the fracture and then placed 2 wires across the fracture site. This was checked fluoroscopically. I then placed 2 partially-threaded cancellous screws with washers over the wires. This provided excellent medial fixation. Attention drawn laterally. A direct lateral approach to the fibula was then performed through a longitudinal incision. Sharp dissection carried through subcutaneous tissue directly onto the fracture. The fracture site was identified. There was some slight comminution with a piece anterior and I did not strip this at all. There were 2 main fragments and reduce those and held with a reduction clamp. I placed a single 4.0 partially-threaded cancellous screw across this fracture site. I then contoured a 10 hole one third semitubular plate to the lateral aspect the fibula. It was fixed proximally with five 3.5 cortical screws and then distally with two 4.0 fully threaded cancellous screws and then a distal locking screw to decrease hardware prominence. X-rays brought in. The ankle was anatomically reduced. I stressed the ankle was and there was no gapping of the medial clear space. All hardware was appropriately placed. We injected locally with 30 cc of half percent Marcaine with epinephrine. I irrigated ext ensively. I then closed the periosteum over the plate with #1 Vicryl suture in [id number] fashion. The tourniquet was let down for tourniquet time 55 minutes. The subcutaneous tissues of both wounds were then closed with 2-0 Vicryl suture in buried interrupted fashion skin was closed with 3-0 nylon suture in a simple fashion. Leg was then cleaned and dried and sterile dressing was Xeroform, 4 fours, sterile cast padding, and a well-padded posterior and stirrup splint were applied. The patient then brought out of general esthesia and transferred to the recovery in stable condition. Patient tolerated procedure well and there are no complications. Fabián Cuevas, my physician printing assistant, was present for the entire procedure. His assistance was required for proper patient positioning, prepping and draping, surgical exposure, retraction, reduction of the fracture, placement of hardware, closure of the incision site and placement of sterile bandage. I attest to the content of the Intraoperative Record and any orders documented therein. Any exceptions are noted below.
[2023-02-14] MEDS ORDERED: ALUMINUM/MAGNESIUM SUSP 30 ML UDC PO PRN (17:29)
[2023-02-14] MEDS ORDERED: MAGNESIUM HYDROXIDE SUSP 30 ML UDC PO PRN (17:29)
[2023-02-14] MEDS ORDERED: NALOXONE HCL 0.4 MG/1 ML VIAL/CARP IV PRN (17:29)
[2023-02-14] MEDS ORDERED: bisacodyL 10 MG SUPP PR PRN (17:29)
[2023-02-14] MEDS ORDERED: METOCLOPRAMIDE HCL INJ 5 MG/ML 2 ML VIAL IV PRN (17:29)
[2023-02-14] MEDS ORDERED: ONDANSETRON INJ 2 MG/ML 2 ML VIAL IV PRN (17:29)
[2023-02-14] MEDS ORDERED: diphenhydrAMINE Capsule 25 MG CAP PO PRN (17:29)
[2023-02-14] MEDS ORDERED: HYDROmorphone INJ 0.5 MG/0.5 ML SYR IV PRN (17:29)
--- NOTE | 2023-02-14 18:00 | Fluoroscopy Report ---
FL ankle RT min 3V RTN CLINICAL HISTORY: RT ANKLE ORIF COMPARISON STUDY: Right ankle radiographs February 13, 2023. FLUOROSCOPY TIME: 15 second. Ka, r: 0.36 mGy FLUOROSCOPIC IMAGES: 3 FINDINGS: Fluoroscopy was provided during open reduction and internal fixation of the distal right fi bular and medial malleolar fractures. Fracture alignment has markedly improved and appears anatomic. The hardware is intact. Ankle mortise widening is no longer identified. No unexpected radiopaque fore ign bodies. IMPRESSION: Fluoroscopy provided during open reduction and internal fixation of the distal right fib ular and medial malleolar fractures. ACT 112: Negative or not required by law. Electronically signed by: Justo Walsh M.D. 02/14/2023 5:58 PM
--- NOTE | 2023-02-14 18:18 | Anesthesiology Progress Note ---
Date of Service February 14, 2023 Anesthesia Post Procedure Vital Signs Vital Signs: Temp Pulse Pulse Pulse Resp BP Pulse Ox 02/14/23 17:29 36.6 C 84 15 109/72 96 02/14/23 17:15 89 12 120/78 96 02/14/23 17:05 37.0 C 87 16 121/80 100 02/14/23 16:55 89 20 118/77 100 02/14/23 16:45 91 H 18 118/74 98 02/14/23 16:38 36.6 C 101 H 11 L 119/72 97 02/14/23 14:30 79 16 122/75 99 02/14/23 14:20 80 14 114/73 98 02/14/23 14:10 82 14 115/75 97 02/14/23 14:00 86 14 118/71 99 02/14/23 13:50 85 14 116/76 98 02/14/23 13:01 37 C 85 12 121/83 97 02/14/23 07:04 36.7 C 74 16 102/63 96 02/13/23 19:24 36.9 C 91 H 16 103/62 97 O2 Del Method O2 Flow Rate 02/14/23 17:29 Room Air 02/14/23 17:15 Room Air 02/14/23 17:05 Room Air 02/14/23 16:55 Oxymask 4 02/14/23 16:45 Oxymask 4 02/14/23 16:38 Oxymask 4 02/14/23 14:30 Oxymask 5 02/14/23 14:20 Oxymask 5 02/14/23 14:10 Oxymask 5 02/14/23 14:00 Oxymask 5 02/14/23 13:50 Oxymask 5 02/14/23 13:01 Room Air 02/14/23 07:04 Room Air 02/13/23 19:24 Room Air Pain Intensity Right Leg: Pain Intensity: 10 Right Ankle: Pain Intensity: 4 Transfer of Care Handoff Completed per policy Notes Mental Status: alert / awake / arousable Patient Amnestic to Procedure: Yes Nausea / Vomiting: adequately controlled Pain: adequately controlled Airway Patency, RR, SpO2: stable & adequate BP & HR: stable & adequate Hydration State: stable & adequate Anesthetic Complications: no major complications apparent and Pt Satisfied with anesthetic care
[2023-02-14] MEDS: SODIUM CHLORIDE 0.9% 1,000 ML IV SCH (18:30)
[2023-02-14] MEDS: KETOROLAC 30 MG/ML VIAL IV SCH ×2 (18:34→23:41)
[2023-02-14] MEDS ORDERED: SENNA 8.6 MG TAB PO SCH (21:00)
[2023-02-14] MEDS: ASPIRIN 81 MG ECTAB PO SCH (23:09)
[2023-02-14] MEDS: ACETAMINOPHEN 500 MG TAB PO SCH (23:09)
[2023-02-14] MEDS: MELATONIN 3 MG TAB PO PRN (23:09)
[2023-02-14] MEDS: DOCUSATE SODIUM 100 MG CAP PO SCH (23:09)
[2023-02-14] MEDS: ceFAZolin 2000MG 2,000 MG/15 ML SYR IV SCH (23:41)
[2023-02-15] MEDS: SODIUM CHLORIDE 0.9% 1,000 ML IV SCH (04:43)
[2023-02-15] MEDS: ACETAMINOPHEN 500 MG TAB PO SCH ×2 (06:00→07:30)
[2023-02-15] MEDS: ceFAZolin 2000MG 2,000 MG/15 ML SYR IV SCH (06:00)
[2023-02-15] MEDS: KETOROLAC 30 MG/ML VIAL IV SCH ×2 (06:00→12:09)
--- NOTE | 2023-02-15 07:05 | Surgery Progress Note ---
Date of Service February 15, 2023 Assessment & Plan (1) Bimalleolar fracture of right ankle: Plan: 57-year-old female postop day 1 from ORIF right ankle fracture dislocation. She is doing well. The block is still in effect. She is got no pain. Plan: 1. DVT prophylaxis including thigh-high teds SCDs and aspirin twice a day for 6 weeks. 2. PT OT. Will go get her some therapy this morning and make sure to get around safely with crutches and a walker. 3. Pain control doing well with current pain regimen. Block is in effect. This should wear off in the next 24 hours. 4. Heel precautions. Instructed to keep all pressure off the heel. 5. Disposition working to discharge her to home and I will see her back 2 to 3 weeks out from surgery date. Admission and Anticipated Discharge Date Admission Date: February 13, 2023 Subjective 57-year-old female postop day 1 from ORIF of a right by mall ankle fracture dislocation. She is doing well this morning. The block still seems to be in fact. She has no pain. No psychomotor function of the right foot yet. No chest pain or shortness of breath Physical Exam Physical Exam: Physical nation was a pleasant middle-age female patient lying bed looks comfortable. Examination of the right leg reveals the splint to be clean dry and intact. Her toes are pink. There is no psychomotor function yet. She is got brisk refill. Respiratory: normal respiratory effort, lungs clear to auscultation Cardiovascular: RRR, no murmur, no edema Gastrointestinal (Abdomen): normal bowel sounds, soft, nontender, no hepatosplenomegaly Results & Data Vital Signs (Past 12 Hours) Vital Signs Temp Pulse Resp BP Pulse Ox O2 Del Method 02/15/23 04:43 36.8 C 75 16 103/68 95 Room Air 02/14/23 23:09 36.7 C 76 16 107/76 96 Room Air 02/14/23 20:36 36.5 C 88 18 113/75 96 Room Air PG Care Time/CCT Total # of Minutes Spent Total Time Spent with Patient: Total time spent is greater than 50% in coordination of care (as documented) at patient's floor/unit and/or counseling patient: Coding Level of Care Code 56076 Post Operative Follow-Up Diagnoses Closed bimalleolar fracture of right ankle, initial encounter S82.841A Encounter type: initial encounter Fracture type: closed (1) Bimalleolar fracture of right ankle Encounter type: initial encounter Fracture type: closed Qualified Code(s): S82.841A - Displaced bimalleolar fracture of right lower leg, initial encounter for closed fracture
[2023-02-15] MEDS: DOCUSATE SODIUM 100 MG CAP PO SCH (07:28)
[2023-02-15] MEDS: ASPIRIN 81 MG ECTAB PO SCH (07:28)
[2023-02-15] MEDS ORDERED: dexAMETHasone 4 MG TAB PO SCH (08:00)
--- NOTE | 2023-02-15 08:49 | Discharge Summary ---
Date of Service February 15, 2023 Admission HPI (Per Admitting) . Patient is a 57-year-old female who presented to the emergency department today with right ankle pain. She states that she slipped on snow bank in the weather and she twisted her right ankle and landed on her right lower extremity. She had immediate onset of right lower extremity pain and cannot bear weight. She was unable to move for 20 minutes until she somebody saw her. When she arrived at the emergency department, an x-ray was completed on the right ankle which saw a displaced bimalleolar ankle fracture. Orthopedics was then consulted. At this time, she notes that her right ankle is causing her discomfort at any time it is moved. Emergency department did start her on IV analgesics which is helping. She does have sensation to the right foot. She denies any low back pain, proximal extremity pain, numbness/tingling, or pare sthesias. She denies any other issues at this time. Admission Exam (Per Admitting) Constitutional: WD/WN, vitals as above no acute distress Eyes: PERRL, conjunctivae normal, anicteric sclerae Neck: trachea midline, no thyromegaly Respiratory: normal respiratory effort, lungs clear to auscultation Cardiovascular: RRR, no murmur, no edema Vessels: normal carotid upstroke; no carotid bruit Gastrointestinal (Abdomen): normal bowel sounds, soft, nontender, no hepatosplenomegaly Skin: no rashes, warm and dry Neurologic: CN's II-XI intact bilaterally and moves all extremities Psychiatric: A+Ox3, euthymic affect Principal Diagnosis Same as "Discharge Diagnosis" noted below under Discharge Instructions. Discharge Exam . On physical examination of the right ankle, splint is in place, clean, dry, intact. She is able to wiggle all 5 toes. Less than 2-second capillary refill. Normal sensation. Neurovascular intact. Discharge Data Consultations 02/13/23 14:43 ED Decision to Admit Stat Procedures Performed Operation Date: 02/14/23 07:00 Actual Procedures p Right Ankle Bimalleolar Open Reduction Internal Fixation(Right) - Matt Conner MD Ordered Studies 02/14/23 06:39 FL ankle RT min 3V RTN Routine 02/14/23 13:23 US - OR guided needle placemen Stat Hospital Course (1) Bimalleolar fracture of right ankle: On February 13, 2023 Johan arrived at [facility] emergency department secondary to a fall which revealed a right bimalleolar ankle fracture. The ankle was then reduced in the emergency department and placed in a posterior and sugar-tong splint. There is no significant events that happened on this day. On February 14, 2022 she underwent a open reduction internal fixation of her right bimalleolar ankle fracture with Dr. Conner with no complications. She had a general anesthetic. Postoperatively, she was started on aspirin for DVT prophylaxis and transferred to the general orthopedic floor in stable condition. Her hospital course was uneventful. On postoperative day #1, her vital signs were stable and her pain was well-controlled. She participated well with physical therapy working on gait training with use of crutches/walker. She was then discharged home in stable condition. She will follow-up with Dr. Conner in 2 weeks for postoperative care. Encounter type: initial encounter Fracture type: closed Qualified Code(s): S82.841A - Displaced bimalleolar fracture of right lower leg, initial encounter for closed fracture PG Care Time/CCT Total # of Minutes Spent Total Time Spent with Patient: Total time spent is greater than 50% in coordination of care (as documented) at patient's floor/unit and/or counseling patient: Discharge Plan Discharge Items Patient Disposition: Home - Self-Care Reason For Visit: RIGHT ANKLE FRACTURE Discharge Diagnosis: Right Ankle Fracture Activity: Per Instructions section Weightbearing: Right non-weightbearing Weightbearing Comment: No wieght on right leg until follow-up visit Non-emergency contact: Surgeon Call non-emergency contact if: you have any medication questions Follow-up/Referrals: vAi Massey MD [Primary Care Provider] - Diet: Regular Addtl Attending Provider Instructions: Keep splint clean, dry, and in place. Elevate right leg as much as possible Keep ALL PRESSURE OFF HEEL Pending Studies at Discharge: No Stand-Alone Forms: My [facility], Smoking Cessation Medications and DC Order Prescriptions: New acetaminophen [Tylenol Extra Strength] 500 mg Tablet 1,000 mg PO Q8 30 Days Qty: 180 0RF Rx Instructions: Take 3 times per day to lessen pain. aspirin 81 mg Tablet,Delayed Release (Dr/Ec) 81 mg PO BID 30 Days Qty: 60 0RF Rx Instructions: Take to prevent blood clots. oxycodone 5 mg Tablet 5 mg PO Q4H PRN (Reason: pain) Qty: 30 0RF Rx Instructions: Take as needed for Pain. Continued herbal drugs Capsule 1 cap PO DAILY Collagen Skin Renewal 30-833.3 mg Tablet 1 tab PO DAILY Beet Chews 1 tab PO DAILY Food Based Multivitamin 1 tab PO DAILY Discharge Orders: Discharge Order (Routine); Ordered 02/15/23 Ordered By: Matt Conner Admission Data Admit Date/Time: 02/13/23 14:55 Attending Provider: Matt Conner Admit Provider: Matt Conner Primary Care Provider: Avi Massey Other Providers: Manas Clark
[2023-02-15] MEDS ORDERED: MULTIVITAMIN PO SCH (09:00)
[2023-02-15] MEDS ORDERED: MULTIVITAMIN TAB PO SCH (09:00)
[2023-02-15] MEDS ORDERED: ASCORBIC ACID COLLAGEN PO SCH (09:00)
[2023-02-15] MEDS ORDERED: [UNRECOGNIZED DRUG - OTHER] PO SCH (09:00)
[2023-02-15] MEDS ORDERED: HERBAL DRUGS PO SCH (09:00)
== END 2023-02-15 16:39 | disposition home or self-care (01) | DRG 494 ==
LOC: ED 11:36 → INTOOBSV 14:55 → 3E 14:55